=== PATIENT | female | born 1950 | race Hispanic/Latino ===

== ENCOUNTER → 2020-06-27 | Day surgery (SDC) | payer MEDICARE ==
[2020-06-22 10:33] LABS: BASOPHILS % 0.3 % (0.0-1.0); EOSINOPHILS # (AUTO) 0.5 (0.0-0.4); EOSINOPHILS % 6.9 % (0.0-6.0); HEMATOCRIT 31.9 % (34.2-44.1); HEMOGLOBIN 9.8 g/dL (12.0-16.0); LYMPHOCYTES # (AUTO) 1.9 (1.0-3.2); MEAN CORPUSCULAR HEMOGLOBIN 28.6 pg (28-32); MEAN CORPUSCULAR HGB CONC 30.7 g/dL (31-35); MONOCYTES # (AUTO) 0.5 (0.2-0.8); MONOCYTES % 7.1 % (4.4-11.3); NEUTROPHILS % 57.3 % (38.7-80.0); PLATELET COUNT 182 x10e3/uL (140-360); RED BLOOD COUNT 3.43 x10e6/uL (3.6-5.1); RED CELL DISTRIBUTION WIDTH 12.3 % (11.7-14.4)
[~2020-06-27] MED LIST: ALENDRONATE SOD70 MG PO; AMLODIPINE BESYL5 MG PO; ASPIRIN EC81 MG PO; CLOPIDOGREL75 MG PO; CRESTOR10 MG PO; DOXAZOSIN MESYLA2 MG PO; GLIMEPIRIDE2 MG PO; HYDROCHLOROTHIA25 MG PO; LEVOCETIRIZINE D5 MG PO; OR PHACO EYE KIT ONE; PREOP PHACO EYE KIT ONE; VITAMIN D3250 MCG PO
[2020-06-27 12:09] VITALS: BP 141/67
== END | disposition home or self-care (01) ==
LOC: OR 09:33
PROVIDERS: ATTEND Ophthalmology
DX: H25.12 Age-related nuclear cataract, left eye (principal); I25.10 Atherosclerotic heart disease of native coronary artery without angina pectoris; I25.2 Old myocardial infarction; I10 Essential (primary) hypertension; E78.5 Hyperlipidemia, unspecified; E11.9 Type 2 diabetes mellitus without complications; Z88.0 Allergy status to penicillin; Z01.810 Encounter for preprocedural cardiovascular examination; Z01.812 Encounter for preprocedural laboratory examination; Z20.822 Contact with and (suspected) exposure to COVID-19; Z79.84 Long term (current) use of oral hypoglycemic drugs; Z79.02 Long term (current) use of antithrombotics/antiplatelets; Z79.82 Long term (current) use of aspirin; Z86.12 Personal history of poliomyelitis; Z86.73 Personal history of transient ischemic attack (TIA), and cerebral infarction without residual deficits; Z95.5 Presence of coronary angioplasty implant and graft
CPT/HCPCS: 36415 ×2; 66984; 82948; 85025; 93005; U0002; V2632

== ENCOUNTER → 2020-07-11 | Day surgery (SDC) | payer MEDICARE ==
[2020-07-11 13:05] VITALS: BP 133/65
== END | disposition home or self-care (01) ==
LOC: OR 09:00
PROVIDERS: ATTEND Ophthalmology
DX: H25.11 Age-related nuclear cataract, right eye (principal); E11.9 Type 2 diabetes mellitus without complications; I10 Essential (primary) hypertension; I25.10 Atherosclerotic heart disease of native coronary artery without angina pectoris; I25.2 Old myocardial infarction; G83.14 Monoplegia of lower limb affecting left nondominant side; Z88.0 Allergy status to penicillin; Z01.812 Encounter for preprocedural laboratory examination; Z20.822 Contact with and (suspected) exposure to COVID-19; Z79.02 Long term (current) use of antithrombotics/antiplatelets; Z79.82 Long term (current) use of aspirin; Z79.84 Long term (current) use of oral hypoglycemic drugs; Z95.5 Presence of coronary angioplasty implant and graft; Z86.12 Personal history of poliomyelitis; Z86.73 Personal history of transient ischemic attack (TIA), and cerebral infarction without residual deficits
CPT/HCPCS: 66984; U0002; V2632